=== PATIENT | female | born 1945 | race Caucasian/White ===

== ENCOUNTER 2017-02-25 17:24 | Observation (INO) | payer MEDICARE ==
--- NOTE | 2017-02-25 18:29 | RAD ---
INDICATION: Chest pain COMPARISON: Most recent comparison chest x-rays dated January 21, 2016 TECHNIQUE: Single AP portable view of the chest was obtained. FINDINGS: Image quality is compromised due to the relative inferiority of a portable chest x-ray. There is mild cardiomegaly similar in appearance to the previous chest x-ray. Otherwise the heart and mediastinum exhibit normal size and contour. The lungs are grossly clear. There is no evidence of a large pleural effusion. Visualized bones are normal for the patient's age. IMPRESSION: No radiographic evidence for acute cardiopulmonary abnormality on this portable chest x-ray.
[2017-02-25] MEDS ORDERED: Aspirin Low Dose CHEW TAB* 81 MG PO ONE (19:25)
[2017-02-25] MEDS ORDERED: Metoprolol Tartrate TAB* 25 MG PO ONE (19:28)
[2017-02-25 19:35] LABS: Hematocrit 40 % (35-47); Hemoglobin 12.8 g/dl (12.0-16.0); Mean Corpuscular HGB Conc 32 g/dl (31-36); Mean Corpuscular Hemoglobin 25 pg (27-31); Mean Corpuscular Volume 80 fL (80-97); Mean Platelet Volume 8 um3 (7.4-10.4); Red Blood Count 5.02 10^6/ul (4.0-5.4); Red Cell Distribution Width 16 % (10.5-15); White Blood Count 10.2 10^3/ul (3.5-10.8)
[2017-02-25 19:49] LABS: Albumin 3.9 g/dL (3.2-5.2); BUN/Creatinine Ratio 19.5 (8-20); Calcium 8.9 mg/dL (8.6-10.3); EGFR African American 88.6 (>60); EGFR Non-African American 68.9 (>60); Globulin 3.1 g/dL (2-4); Magnesium 2.2 mg/dL (1.9-2.7); Total Bilirubin 0.3 mg/dL (0.2-1.0)
[2017-02-25 19:50] LABS: Troponin I 0.01 ng/mL (<0.04)
[2017-02-25] MEDS ORDERED: Ondansetron INJ* 2 MG/ML VIAL IV PRN (21:07)
[2017-02-25] MEDS ORDERED: Acetaminophen TAB* 325 MG PO PRN (21:09)
--- NOTE | 2017-02-25 21:22 | ED ---
Elza Johnson Alfonso, scribed for Lazaro Casanova on 02/25/17 at 1943 . HPI Chest Pain - HPI Summary HPI Summary: This patient is a 71 year old F [facility] by male with a chief complaint of sore CP since one month ago. The CC is described as 15 minute intermittent episodes and worsening in severity. The pain radiates to her left shoulder. Pt rates the current pain 0/10 in severity. Symptoms aggravated and alleviated by nothing. Pt reports SOB, and weakness. Pt denies diaphoresis. She denies having had a stress test. - History of Current Complaint Chief Complaint: EDChestPainROMI Time Seen by Provider: 02/25/17 19:12 Hx Obtained From: Patient Onset/Duration: Started Weeks Ago - 1 month, Resolved Timing: Intermittent Initial Severity: Mild Current Severity: Mild Pain Intensity: 0 - Current Pain Scale Used: 0-10 Numeric Chest Pain Radiates: Yes Chest Pain Radiates To:: Shoulder - L Character: Other: - "Sore" Aggravating Factor(s): Nothing Alleviating Factor(s): Nothing Associated Signs and Symptoms: Positive: Other: - Pt reports SOB, and weakness. Pt denies diaphoresis. - Allergy/Home Medications Allergies/Adverse Reactions: Allergies Allergy/AdvReac Type Severity Reaction Status Date / Time Latex Allergy Rash Verified 02/25/17 17:26 Nickel Allergy Rash Verified 02/25/17 17:26 PMH/Surg Hx/FS Hx/Imm Hx Endocrine/Hematology History: Denies: Hx Diabetes, Hx Systemic Lupus Erythematosus, Hx Thyroid Disease Cardiovascular History: Reports: Other Cardiovascular Problems/Disorders - Hx of palpitations Denies: Hx Congestive Heart Failure, Hx Hypertension Respiratory History: Reports: Other Respiratory Problems/Disorders - Hx of pneumonia. Denies: Hx Asthma, Hx Chronic Obstructive Pulmonary Disease (COPD) GI History: Reports: Hx Gall Bladder Disease - s/p choley, Hx Gastroesophageal Reflux Disease, Hx Hiatal Hernia - HAD REPAIR FOR Denies: Hx Ulcer Comment Only: Other GI Disorders - hiatal hernia History: Reports: Other Problems/Disorders - hx of uti Denies: Hx Dialysis, Hx Renal Disease Musculoskeletal History: Reports: Hx Arthritis - HANDS, HANDS, HIPS AND KNEES, Other Musculoskeletal History - sciatica Denies: Hx Rheumatoid Arthritis Sensory History: Reports: Hx Cataracts - BILATERAL, Hx Contacts or Glasses Denies: Hx Hearing Aid Opthamlomology History: Reports: Hx Cataracts - BILATERAL, Hx Contacts or Glasses Psychiatric History: Reports: Hx Anxiety - PRN MEDICATION, Hx Depression - ON MEDICATION FOR - Cancer History Cancer Type, Location and Year: questionable mammograms and lobectomies Hx Chemotherapy: No - Surgical History Surgery Procedure, Year, and Place: partial hysterectomy w/ rectal and bladder prolapse repair; D&C's; 25 yrs ago, cholecystectomy, hernia repair Hx Anesthesia Reactions: Yes - NAUSEA,BUT SURGERY IN 2011- HAD NO PROBLEM Infectious Disease History: No Infectious Disease History: Denies: Hx Hepatitis, Hx Human Immunodeficiency Virus (HIV), Hx Shingles - vaccinated, History Other Infectious Disease, Traveled Outside the [place] in Last 30 Days - Family History Known Family History: Positive: Cardiac Disease - Social History Alcohol Use: Occasionally Substance Use Type: Reports: None Smoking Status (MU): Never Smoked Tobacco Review of Systems Negative: Skin Diaphoresis Positive: Chest Pain Positive: Shortness Of Breath Positive: Weakness All Other Systems Reviewed And Are Negative: Yes Physical Exam Triage Information Reviewed: Yes Vital Signs On Initial Exam: Initial Vitals Temp Pulse Resp BP Pulse Ox 99.2 F 109 18 170/88 98 02/25/17 17:27 02/25/17 17:27 02/25/17 17:27 02/25/17 17:27 02/25/17 17:27 Vital Signs Reviewed: Yes Appearance: Positive: Well-Appearing, No Pain Distress Skin: Positive: Warm, Skin Color Reflects Adequate Perfusion, Dry Head/Face: Positive: Normal Head/Face Inspection Eyes: Positive: EOMI, ADEN ENT: Positive: Normal ENT inspection Neck: Positive: Supple, Nontender Respiratory/Lung Sounds: Positive: Clear to Auscultation, Breath Sounds Present Cardiovascular: Positive: RRR, Pulses are Symmetrical in both Upper and Lower Extremities Abdomen Description: Positive: Nontender, Soft Bowel Sounds: Positive: Present Musculoskeletal: Positive: Normal, Strength/ROM Intact Neurological: Positive: Normal, Sensory/Motor Intact, Alert, Oriented to Person Place, Time - [place] Coma Scale Coma Scale Total: 15 Diagnostics - Vital Signs Vital Signs Temp Pulse Resp BP Pulse Ox 02/25/17 19:28 86 18 154/72 97 02/25/17 19:00 86 20 97 02/25/17 18:00 82 18 95 02/25/17 17:51 87 13 96 07/29/17 17:42 89 02/25/17 17:27 99.2 F 109 18 170/88 98 - Laboratory Lab Results: Lab Results 02/25/17 Range/Units 19:29 WBC 10.2 (3.5-10.8) 10^3/ul RBC 5.02 (4.0-5.4) 10^6/ul Hgb 12.8 (12.0-16.0) g/dl Hct 40 (35-47) % MCV 80 (80-97) fL MCH 25 L (27-31) pg MCHC 32 (31-36) g/dl RDW 16 H (10.5-15) % Plt Count 257 (150-450) 10^3/ul MPV 8 (7.4-10.4) um3 Neut % (Auto) 69.5 (38-83) % Lymph % (Auto) 22.7 L (25-47) % [place] % (Auto) 5.6 (1-9) % Eos % (Auto) 1.2 (0-6) % Baso % (Auto) 1.0 (0-2) % Absolute Neuts (auto) 7.1 (1.5-7.7) 10^3/ul Absolute Lymphs (auto) 2.3 (1.0-4.8) 10^3/ul Absolute Monos (auto) 0.6 (0-0.8) 10^3/ul Absolute Eos (auto) 0.1 (0-0.6) 10^3/ul Absolute Basos (auto) 0.1 (0-0.2) 10^3/ul Absolute Nucleated RBC 0.01 10^3/ul Nucleated RBC % 0.1 Result Diagrams: 02/25/17 19:29 02/25/17 19:29 Lab Statement: Any lab studies that have been ordered have been reviewed, and results considered in the medical decision making process. - Radiology CXR Radiology Interpretation Completed By: Radiologist - No radiographic evidence for acute cardiopulmonary abnormality on this portable chest x-ray. - EKG 0184 Cardiac Rate: NL - BPM 91 EKG Rhythm: Sinus Rhythm ST Segment: Non-Specific EKG Interpretation: Q-waves in inferior leads. Chest Pain Course/Dx - Course Assessment/Plan: 71 year old F presents to the ED with a CC of sore CP since one month ago. The CC is described as 15 minute intermittent episodes and worsening in severity. The pain radiates to her left shoulder. Pt reports SOB, and weakness. Pt denies diaphoresis. CXR reveals No radiographic evidence for acute cardiopulmonary abnormality on this portable chest x-ray. An EKG reveals NSR. We discussed patient care with Dr. Abbott (Hospitalist) who agrees to see the patient in the ED. Consulted Dr. Abbott at 2107 who agrees to admit. Patient will be admitted with follow up from Dr. Abbott. Pt is agreeable with this plan. - Diagnoses Provider Diagnoses: Unstable angina - Provider Notifications Discussed Care Of Patient With: Jeff Abbott Time Discussed With Above Provider: 20:34 Instructed by Provider To: Other - Consulted Dr. Abbott (Hospitalist) who agrees to see the patient in the ED. Consulted Dr. Abbott at 2107 who agrees to admit. Discharge - Discharge Plan Condition: Stable Disposition: ADMITTED TO [facility] Referrals: Lori Dawson MD [Primary Care Provider] - The documentation as recorded by the Elza savage Alfonso accurately reflects the service I personally performed and the decisions made by Edilberto beltre Emmanuel.
[2017-02-25] MEDS: Heparin VIAL(*) 5000 UNITS/ML VIAL (FIVE THOUSAND) SUBCUT SCH (23:05)
--- NOTE | 2017-02-26 04:40 | HP ---
CC: Dr. Dawson * HISTORY AND PHYSICAL: DATE OF ADMISSION: 02/25/17 PRIMARY CARE PROVIDER: Dr. Dawson. ATTENDING PHYSICIAN WHILE IN THE HOSPITAL: Jeff Abbott MD * (report dictated by Kalpesh Tsang NP). CHIEF COMPLAINT: Chest pain. HISTORY OF PRESENT ILLNESS: Ms. Damon is a 71-year-old female patient, she has a history of depression and anxiety, pancreatitis, history of labyrinthitis , diverticulitis, prediabetic, and chronic bronchitis. She comes into the ER today stating that over the last several weeks she has had intermittent left- sided chest discomfort that she describes as discomfort, she states it does not feel like a pressure, states it just feels like a dull ache, it comes and goes, lasted seconds. However, the last night the pain was in the left side of her chest, it did go into her arms up she states and it did not radiate down the arm , but she did feel short of breath. She states the pain does not come with exertion. It does not really correlate when it comes, she states. She states that there is no association with food and there has been no recent trips or travel. No calf pain or leg pain and there has been no associated nausea with the discomfort or any associated diaphoresis. She was concerned though, because the episodes may last about 15 minutes. She had more episodes today when she woke up that were seconds. She went and saw her primary. Her primary evaluated her and set her up for a stress test; however, she was told if the symptoms came back that she should be evaluated probably more sooner in the ER. After having the primary's appointment today, the patient did develop chest discomfort again and she came into the ER, was evaluated. She denies any recent chills or fevers or cough. She does state that she has chronic runny nose and she states that she has a chronic cough from postnasal drip. However, because of the recurrent chest pain, there was concern for acute coronary syndrome by the ER and we were asked to evaluate for admission. PAST MEDICAL HISTORY: Significant for: 1. Depression. 2. Anxiety. 3. Pancreatitis. 4. Diverticulitis. 5. Labyrinthitis. 6. Prediabetes. 7. Chronic bronchitis. PAST SURGICAL HISTORY: 1. She has had a breast biopsy. 2. Lumpectomy. 3. Bladder and rectal prolapse repairs. 4. Hysterectomy. 5. Laparoscopic cholecystectomy. 6. Liberty fundoplication. HOME MEDICATIONS: Include: 1. Mobic 7.5 mg p.o. b.i.d. 2. Calcium with vitamin D 1 tablet p.o. b.i.d. 3. Ferrous sulfate 50 mg p.o. daily. ALLERGIES TO MEDICATIONS: Include LATEX, NICKEL. FAMILY HISTORY: Mother had a CHF. Mother had COPD. SOCIAL HISTORY: She does not smoke, does not drink. Surrogate decision maker is her friend. REVIEW OF SYSTEMS: There is no documented fever. Denied having any significant weight change. There was no double vision. There is no ear discharge. No rhinorrhea. No sore throat. No thyroid enlargement. Denies having any chest discomfort. Currently, she denies having any shortness of breath, denies having any abdominal discomfort. There is no nausea now, no vomiting, no dysuria or frequency. No seizure. No loss of consciousness. No pruritus, no skin ulceration. Review of 14 systems completed, all others negative. PHYSICAL EXAMINATION GENERAL: At this time, Ms. Damon is a 71-year-old female patient. She appears to be well nourished, well developed. She is sitting in the ER stretcher. VITAL SIGNS: Reveals blood pressure 142/68, pulse 80, respirations 22, O2 saturation 95%, temperature 99.2. HEENT: Head is atraumatic and normocephalic. Eyes: EOMs are intact. Sclerae were anicteric and not pale. Throat: Oral mucosa appears to be moist, no oropharyngeal erythema. NECK: Supple. LUNGS: Clear to auscultation bilaterally. No wheezes, rales, or rhonchi. HEART: Sounds S1 and S2. Regular rate and rhythm. No murmurs, rubs or gallops. ABDOMEN: Soft, flat, and nontender. Bowel sounds present. EXTREMITIES: Pulses were 2+ throughout. She had no peripheral edema. She had no calf tenderness or swelling. She had 5/5 strength. NEUROLOGIC: She is awake. She is awake, alert, oriented x3. Tongue is midline. Project Manager Senior are equal. No gross focal deficits. The skin is grossly intact. LABORATORY DATA/DIAGNOSTIC STUDIES: Labs today revealed WBC of 10.2, RBC of 5.02, hemoglobin 12.8, hematocrit of 40, platelet count of 257,000. The INR was 0.84, PTT was 30.8. Sodium 138, potassium 4, chloride 106, bicarbonate 26, BUN 16, creatinine 0.82, glucose 114, calcium 8.9, total bilirubin 0.3, magnesium 2.2, ALT 13, AST 15, alkaline phosphatase 79, CK 67, troponin 0.01, BNP of 32, albumin 3.9. She did have a chest x-ray obtained today, which revealed no radiographic evidence of acute cardiopulmonary abnormality on the portable chest. She did have an EKG obtained today, which showed a normal sinus rhythm. She did have a rate of 91. There was subtle elevation in V3, but she has had this previously. She had no ST depressions or new elevations. No T wave inversions. It was reviewed with the previous EKG, it appears to be similar. Old medical records reviewed. ASSESSMENT AND PLAN: Ms. Damon is a 71-year-old female patient coming into the ER with complaints today of chest pain. She will be admitted under observation status for: 1. Chest pain. Again, the patient does have the risk factors. She is prediabetic. She was exposed to secondhand smoke, but she never smoked herself , but her story being that the pain has been going on for 3 weeks intermittently , certainly this could be acute coronary syndrome; however, it is nonexertional and the only associated symptom she does have is shortness of breath. However, I do think it is warranted to go ahead and cycle her troponins, place her on telemetry. We will start her on aspirin, in addition to this we will go ahead and get a stress test on Monday and we will continue to follow. 2. Depression/anxiety. Continue supportive care. 3. History of pancreatitis and diverticulitis, not an active issue. She is to follow with primary. 4. Labyrinthitis, not an active issue. Follow with primary. 5. Prediabetes, we will check A1c. 6. Chronic bronchitis, not an active issue currently. She will follow with primary. 7. DVT prophylaxis. She will be placed on heparin subcu. 8. Code status: Full code. 9. Fluids, electrolytes, nutrition. She can have a heart-healthy diet and should be on n.p.o. Monday night for stress test on Monday morning. TIME SPENT: Time spent on the admission was 60 minutes, greater than half the time was spent [id number] with the patient obtaining my history and physical, other half time was spent going over the plan of care with the patient and implementing plan of care. I did discuss the plan of care with my attending, Dr. Abbott, who is in agreement. KALPESH TSANG NP [id number]/[facility] #: [id number] JOSUÉ
[2017-02-26] MEDS: Heparin VIAL(*) 5000 UNITS/ML VIAL (FIVE THOUSAND) SUBCUT SCH ×3 (05:13→21:45)
[2017-02-26 05:21] LABS: Hematocrit 37 % (35-47); Hemoglobin 11.6 g/dl (12.0-16.0); Mean Corpuscular HGB Conc 32 g/dl (31-36); Mean Corpuscular Hemoglobin 26 pg (27-31); Mean Corpuscular Volume 80 fL (80-97); Mean Platelet Volume 8 um3 (7.4-10.4); Red Blood Count 4.56 10^6/ul (4.0-5.4); Red Cell Distribution Width 16 % (10.5-15); White Blood Count 8.3 10^3/ul (3.5-10.8)
[2017-02-26 05:32] LABS: BUN/Creatinine Ratio 24.1 (8-20); Calcium 8.6 mg/dL (8.6-10.3); EGFR African American 92.5 (>60); EGFR Non-African American 71.9 (>60); HDL Cholesterol 38.9 mg/dL; Potassium 3.9 mmol/L (3.5-5.0)
[2017-02-26] MEDS: Aspirin EC Low Dose* 81 MG TAB.EC PO SCH (07:31)
--- NOTE | 2017-02-26 14:43 | PN ---
Subjective Date of Service: 02/26/17 Interval History: Pt is feeling well. She is having the hardest time with not having coffee. She has not had any chest discomfort in the hospital. No SOB. She states she has not walked much since being here. Family History: Unchanged from Admission Social History: Unchanged from Admission Past Medical History: Unchanged from Admission Objective Active Medications: Acetaminophen (Tylenol Tab*) 650 mg PO Q6H PRN PRN Reason: FEVER/PAIN Aspirin (Aspirin Ec Low Dose*) 81 mg PO DAILY [facility] Last Admin: 02/26/17 07:31 Dose: 81 mg Heparin Sodium (Porcine) (Heparin Vial(*)) 5,000 units SUBCUT Q8HR [facility] Last Admin: 02/26/17 13:05 Dose: 5,000 units Ondansetron HCl (Zofran Inj*) 4 mg IV Q6H PRN PRN Reason: NAUSEA Vital Signs 02/25/17 02/25/17 02/25/17 21:36 22:05 22:18 Temperature 98.5 F Pulse Rate 75 73 Respiratory 23 17 17 Rate Blood Pressure 145/64 146/74 (mmHg) O2 Sat by Pulse 95 99 Oximetry 02/25/17 02/25/17 02/25/17 22:25 23:00 23:27 Temperature 98.2 F Pulse Rate 69 Respiratory 49 16 16 Rate Blood Pressure 138/60 (mmHg) O2 Sat by Pulse 98 Oximetry 02/26/17 02/26/17 02/26/17 00:00 01:00 02:02 Temperature Pulse Rate Respiratory 18 17 52 Rate Blood Pressure (mmHg) O2 Sat by Pulse Oximetry 02/26/17 02/26/17 02/26/17 03:00 03:44 04:00 Temperature 97.5 F Pulse Rate 65 Respiratory 14 15 17 Rate Blood Pressure 120/56 (mmHg) O2 Sat by Pulse 97 Oximetry 02/26/17 02/26/17 02/26/17 05:00 06:00 06:27 Temperature Pulse Rate Respiratory 15 17 17 Rate Blood Pressure (mmHg) O2 Sat by Pulse Oximetry 02/26/17 02/26/17 02/26/17 07:00 07:21 08:00 Temperature 98.0 F Pulse Rate 70 Respiratory 16 18 18 Rate Blood Pressure 130/67 (mmHg) O2 Sat by Pulse 96 Oximetry 02/26/17 02/26/17 02/26/17 08:14 09:00 10:00 Temperature Pulse Rate Respiratory 19 12 Rate Blood Pressure (mmHg) O2 Sat by Pulse 96 Oximetry 02/26/17 02/26/17 02/26/17 11:00 11:16 12:00 Temperature 97.2 F Pulse Rate 70 Respiratory 6 20 11 Rate Blood Pressure 146/70 (mmHg) O2 Sat by Pulse 98 Oximetry Oxygen Devices in Use Now: None Appearance: Elderly female sitting up in bed, NAD Eyes: No Scleral Icterus Ears/Nose/Mouth/Throat: Mucous Membranes Moist Respiratory: Symmetrical Chest Expansion and Respiratory Effort, Clear to Auscultation Cardiovascular: NL Sounds; No Murmurs; No JVD, RRR, No Edema Abdominal: NL Sounds; No Tenderness; No Distention Extremities: No Clubbing, Cyanosis Skin: No Rash or Ulcers, No Nodules or Sclerosis Neurological: Alert and Oriented x 3 Result Diagrams: 02/26/17 05:03 02/26/17 05:03 Additional Lab and Data: Lab Results 02/25/17 Range/Units 19:29 WBC 10.2 (3.5-10.8) 10^3/ul RBC 5.02 (4.0-5.4) 10^6/ul Hgb 12.8 (12.0-16.0) g/dl Hct 40 (35-47) % MCV 80 (80-97) fL MCH 25 L (27-31) pg MCHC 32 (31-36) g/dl RDW 16 H (10.5-15) % Plt Count 257 (150-450) 10^3/ul MPV 8 (7.4-10.4) um3 Neut % (Auto) 69.5 (38-83) % Lymph % (Auto) 22.7 L (25-47) % [place] % (Auto) 5.6 (1-9) % Eos % (Auto) 1.2 (0-6) % Baso % (Auto) 1.0 (0-2) % Absolute Neuts (auto) 7.1 (1.5-7.7) 10^3/ul Absolute Lymphs (auto) 2.3 (1.0-4.8) 10^3/ul Absolute Monos (auto) 0.6 (0-0.8) 10^3/ul Absolute Eos (auto) 0.1 (0-0.6) 10^3/ul Absolute Basos (auto) 0.1 (0-0.2) 10^3/ul Absolute Nucleated RBC 0.01 10^3/ul Nucleated RBC % 0.1 Assess/Plan/Problems-Billing Ms Damon is a 71 yo F who has a h/o pre-diabetes and obesity who presented to the ER with c/o intermittent chest discomfort over the last 3 weeks. - Patient Problems (1) Chest pain Current Visit: Yes Status: Acute Code(s): R07.9 - CHEST PAIN, UNSPECIFIED SNOMED Code(s): 40826797 Comment: The patient has ruled out for OR. Plan will be for chemical nuclear stress test tomorrow. She will alert nursing to any further episodes of CP. Lipid profile is favorable. (2) HTN (hypertension) Current Visit: Yes Status: Acute Code(s): I10 - ESSENTIAL (PRIMARY) HYPERTENSION SNOMED Code(s): 67441002 Comment: She does not have a h/o HTN however her BP has not been in the optimal range. Will start amlodipine 5mg daily. Monitor BP. (3) Pre-diabetes Current Visit: Yes Status: Acute Code(s): R73.03 - PREDIABETES SNOMED Code (s): 203321466 Comment: Will get nutrition consult. (4) DVT prophylaxis Current Visit: Yes Status: Acute Code(s): OMP1694 - SNOMED Code(s): 986557854 Comment: SQ heparin (5) Full code status Current Visit: Yes Status: Acute Code(s): Z78.9 - OTHER SPECIFIED HEALTH STATUS SNOMED Code(s): 433806155
[2017-02-26] MEDS: amLODIPine TAB* 5 MG PO SCH (14:56)
[2017-02-27] MEDS: Heparin VIAL(*) 5000 UNITS/ML VIAL (FIVE THOUSAND) SUBCUT SCH (05:51)
[2017-02-27] MEDS: amLODIPine TAB* 5 MG PO SCH (09:35)
[2017-02-27] MEDS: Aspirin EC Low Dose* 81 MG TAB.EC PO SCH (09:35)
--- NOTE | 2017-02-27 10:10 | RAD ---
INDICATION: Chest pain COMPARISON: Chest x-ray dated February 25, 2017 TECHNIQUE: SPECT imaging was performed. Rest images were acquired following the intravenous injection of 10.83 millicuries of technetium 99m tetrofosmin on February 27, 2017. At 0855 hours stress images were acquired following the intravenous administration of 25 millicuries of technetium 99m tetrofosmin. A peak heart rate was achieved of 142 bpm. FINDINGS: There are no defects of the stress-induced or fixed nature. The cardiac chamber size is normal. There are no wall motion abnormalities. The ejection fraction is calculated at 71% during stress. IMPRESSION: No scintigraphic evidence of ischemia or infarction. ASSESSMENT: Low risk
[2017-02-27 11:43] VITALS: BP 149/73
--- NOTE | 2017-02-28 14:59 | DS ---
CC: Dr. Dawson* DISCHARGE SUMMARY: DATE OF ADMISSION: 02/25/17 DATE OF DISCHARGE: 02/27/17 PRIMARY CARE PROVIDER: Dr. Dawson. PRINCIPAL DIAGNOSIS: Noncardiac chest pain. SECONDARY DIAGNOSES: 1. Prediabetes. 2. Hypertension. 3. Anxiety/depression. DISCHARGE MEDICATIONS: 1. Amlodipine 5 mg p.o. daily (new). 2. Calcium plus D 1 tab p.o. b.i.d. 3. Meloxicam 7.5 mg p.o. b.i.d. 4. Ferrous sulfate 50 mg p.o. daily. HOSPITAL COURSE: Ms. Damon is a 71-year-old female, who has a history of prediabetes and obesity, who presented to the emergency room on 02/25/17 with complaints of intermittent chest discomfort that has been going on over the last 3 weeks. The patient had been set up for an outpatient stress test by her primary care provider; however, as she had another episode, she presented to the emergency room for evaluation and was admitted to rule out an acute coronary syndrome. The patient did rule out for an acute coronary syndrome. On 02/27/17, she underwent a chemical nuclear stress test that did not reveal any fixed or reversible ischemic changes. The patient was felt to be stable for discharge home from the standpoint. The cause of her intermittent chest pain , however, is unclear. During the course of the hospitalization, it became clear that the patient was moderately hypertensive. She was started on amlodipine 5 mg p.o. daily with good response. The patient has been recommended to continue on this medication. In addition, the patient's hemoglobin A1c was obtained and found to be mildly elevated at 6.3%. The patient has been instructed to aggressively work on diet and exercise over the next 6 months and if she fails to improve her A1c, she should consider being started on metformin. At this point, the patient is stable for discharge home. PHYSICAL EXAMINATION: On the day of discharge, the patient is awake, alert, and oriented, sitting up in the bed, in no acute distress. Vital signs are stable. Cardiac exam reveals a normal S1, S2. Regular rate and rhythm. No lower extremity edema was noted. Her pulmonary exam revealed clear lungs bilaterally. The abdominal exam revealed normal bowel sounds with an abdomen that is obese, soft, nontender, and nondistended. FOLLOWUP CONCERNS: The patient is being discharged home today, 02/27/17. She is to follow up with Dr. Dawson in the next 4 to 7 days. She has been given the number for [facility] so that she can meet with the caustic pump operator and discuss healthy lifestyle to improve her hemoglobin A1c. ACTIVITY LEVEL: As tolerated. DIET: Low fat. CONDITION ON DISCHARGE: Stable. TIME SPENT: Twenty-five was minutes spent discharging the patient. [id number]/[facility] #: [id number] JOSUÉ
== END 2017-02-27 12:41 | disposition home or self-care (01) ==
LOC: ED 17:24 → MEDTELE 21:04
PROVIDERS: ADMIT Internal Medicine; ATTEND Hospitalist
DX: R07.89 Other chest pain (principal); R73.03 Prediabetes; I10 Essential (primary) hypertension; F41.9 Anxiety disorder, unspecified; F32.9 Major depressive disorder, single episode, unspecified; R06.02 Shortness of breath; I51.7 Cardiomegaly; R53.1 Weakness; Z79.899 Other long term (current) drug therapy
CPT/HCPCS: 36415; 71010; 78452; 80048; 80053; 80061; 82550; 83036; 83735; 83880; 84484; 85025; 85379; 85610; 85730; 93005; 93017; 94760; 96372; 99283; A9270-GY; A9502; G0378; J1644

== ENCOUNTER 2018-01-04 10:08 | Emergency (ER) | payer MEDICARE ==
[2018-01-04 10:41] VITALS: BP 0/0
--- OUTSIDE RECORDS SUMMARY | 2018-01-04 11:25 | XMS REPORT ---
:1945 External Reference #:[id number] Author Organization [employer] Address [address] [place] [address] Phone [phone] Care Team Providers Name Role Phone Lori Dawson M.D. Primary Care Physician Unavailable Payers Type Date Identification Numbers Payment Provider Subscriber Medicare Primary Policy Number: [id number] Medicare - [place] Selin Damon PayID: [id number] [address] [place] [address] Medigap Part B Effective: 2013 Policy Number: [facility] Selin Damon [id number] PayID: [id number] [address] [place] [address] Problems Date Description Provider Status Onset: Type 2 diabetes mellitus Active Onset: Essential hypertension Active Onset: Arthritis Active Onset: 12/18/2017 Insomnia hCe Clayton O.D. Active Onset: 12/18/2017 Herpes zoster without complication Che Clayton O.D. Active Onset: 12/18/2017 Tear film insufficiency Che Clayton O.D. 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 ETOH Use Rarely consumes alcohol Smoking Patient has never smoked Daily Caffeine Consumes on average 2 cups of regular coffee per day Daily Caffeine Consumes on average 8oz of iced tea per day Allergies, Adverse Reactions, Alerts Date Description Reaction Status Severity Comments 12/18/2017 NKDA active Medications Medication Date Status Form Strength Qnty SIG Indications Ordering Provider Valacyclovir Active Tablets 1gm Unknown HCL 000 Amlodipine 00/00/0 Active Tablets 5mg Take One Unknown Besylate 000 Tablet By Mouth Every Day Meloxicam Active Tablets 7.5mg Unknown 000 Metformin HCL Active Tablets ER 500mg Take One Unknown ER 000 24HR Tablet By Mouth Every Day Probiotic Active Capsules Unknown 000 Caltrate 600 Active Tablets 1500(600Ca Unknown 000 ) mg Results Description No Information Procedures Date CPT Code Description Status 08/28/2013 29590 Extracapsular Cataract Extraction W/Intraocular Lens Completed 08/14/2013 91880 Extracapsular Cataract Extraction W/Intraocular Lens Completed 08/06/2013 00375 Ophthalmic Biometry Completed 08/06/2013 24767 Ophthalmic Biometry Completed 07/19/2013 31852 Est Patient Comprehensive Exam Completed 07/12/2012 23725 Determination Of Refractive State Completed 07/12/2012 58763 Est Patient Comprehensive Exam Completed 07/12/2011 87234 Determination Of Refractive State Completed 07/12/2011 28762 New Patient Comprehensive Exam Completed Encounters Type Date Location Provider CPT E/M Dx Office Visit 08/06/2013 12:45p Chacorta Goff MD, [place], [address] 366.16 Jacob 366.16 Plan of Care 12/18/2017 - Che Clayton O.D.B02.9 Zoster without complicationsFollow up :prnH04.123 Dry eye syndrome of bilateral lacrimal glandsComments:Smoking can increase the risk of developing or worsening any eye related disease, as well as affect your overall health. If you are a smoker, we strongly recommend that you quit.If you are not a smoker, we strongly recommend that you do not start. use a hot compress for 5-10 minutes 1 x dayuse artificial tears 3-4 x day both eyes as needed
--- NOTE | 2018-01-04 14:35 | ED ---
Ernie Johnson Stephanie, scribed for Rickey Garcia MD on 01/04/18 at 1038 . Skin Complaint - HPI Summary HPI Summary: The pt is a 72 y/o F presenting to the ED with c/o rash that began on 01/03/18. Symptoms include decreased energy. The pt reports hx of shingles about 1 month ago. - History of Current Complaint Chief Complaint: EDRashSkinAbscess Time Seen by Provider: 01/04/18 10:23 Stated Complaint: RASH Hx Obtained From: Patient Onset/Duration: Started Days Ago - 1, Still Present Timing: Constant Current Severity: None Pain Intensity: 0 Pain Scale Used: 0-10 Numeric Skin Location: Discrete, Arm - R forearm Aggravating Symptom(s): Nothing Alleviating Symptom(s): Nothing Associated Signs & Symptoms: Rash - Additional Pertinent History Primary Care Physician: [id number] - Allergy/Home Medications Allergies/Adverse Reactions: Allergies Allergy/AdvReac Type Severity Reaction Status Date / Time MS Latex [Latex] Allergy Rash Verified 01/04/18 10:20 MS Nickel [Nickel] Allergy Rash Verified 01/04/18 10:20 Home Medications: Home Medications Calcium Carbonate/Vitamin D3 [Caltrate 600 + D Soft Chew Tab] 1 chw PO DAILY 02/14 [History Confirmed 01/04/18] Meloxicam(NF) [Mobic(NF)] 7.5 mg PO BID PRN 01/04/18 [History Confirmed 01/04/18 ] Metformin ER (NF) 500 mg PO DAILY 01/04/18 [History Confirmed 01/04/18] amLODIPine TAB* [Norvasc 5 mg TAB*] 5 mg PO DAILY 01/04/18 [History Confirmed ] PMH/Surg Hx/FS Hx/Imm Hx Endocrine/Hematology History: Reports: Hx Diabetes - pre diabetes but not officially diagnosed Denies: Hx Systemic Lupus Erythematosus, Hx Thyroid Disease Cardiovascular History: Reports: Hx Angina - Recent and new, Other Cardiovascular Problems/Disorders - Hx of palpitations Denies: Hx Congestive Heart Failure, Hx Hypertension Respiratory History: Reports: Hx Chronic Bronchitis, Other Respiratory Problems/ Disorders - Hx of pneumonia. Denies: Hx Asthma, Hx Chronic Obstructive Pulmonary Disease (COPD) GI History: Reports: Hx Diverticulosis - diverticulitis, Hx Gall Bladder Disease - s/p choley, Hx Gastroesophageal Reflux Disease, Hx Hiatal Hernia - HAD REPAIR FOR Denies: Hx Ulcer Comment Only: Other GI Disorders - hiatal hernia History: Reports: Other Problems/Disorders - hx of uti Denies: Hx Dialysis, Hx Renal Disease Musculoskeletal History: Reports: Hx Arthritis - HANDS, HANDS, HIPS AND KNEES, Other Musculoskeletal History - sciatica Denies: Hx Rheumatoid Arthritis Sensory History: Reports: Hx Cataracts, Hx Contacts or Glasses Denies: Hx Hearing Aid Opthamlomology History: Reports: Hx Cataracts, Hx Contacts or Glasses Neurological History: Reports: Other Neuro Impairments/Disorders - Sciatica nerve pain Psychiatric History: Reports: Hx Anxiety - PRN MEDICATION, Hx Depression - ON MEDICATION FOR - Cancer History Cancer Type, Location and Year: questionable mammograms and lobectomies Hx Chemotherapy: No - Surgical History Surgery Procedure, Year, and Place: partial hysterectomy w/ rectal and bladder prolapse repair; D&C's; 25 yrs ago, cholecystectomy, hernia repair, cataract, [place] fundiplication Hx Anesthesia Reactions: Yes - NAUSEA,BUT SURGERY IN 2011- HAD NO PROBLEM Infectious Disease History: No Infectious Disease History: Denies: Hx Hepatitis, Hx Human Immunodeficiency Virus (HIV), Hx of Known/ Suspected MRSA, Hx Shingles - vaccinated, History Other Infectious Disease, Traveled Outside the [place] in Last 30 Days - Family History Known Family History: Positive: Cardiac Disease - Social History Occupation: Retired Lives: With Family Alcohol Use: Weekly Alcohol Amount: 2 drinks a week Hx Substance Use: No Substance Use Type: Reports: None Hx Tobacco Use: No Smoking Status (MU): Never Smoked Tobacco Have You Smoked in the Last Year: No Review of Systems Positive: Other - decreased energy. Negative: Fever Positive: Rash Negative: Slurred Speech All Other Systems Reviewed And Are Negative: Yes Physical Exam - Summary Physical Exam Summary: Appearance: Well appearing, no pain distress Skin: warm, dry,1 cm * 0.5 cm area on R dorsal forearm that is purpuric but non- raised and non-blanchable, no vesicular regions. Slight abrasion down the center of rash and slightly proximal to the rash. Head/face: normal Eyes: EOMI, ADEN ENT: normal Neck: supple, non-tender Respiratory: CTA, breath sounds present Cardiovascular: RRR, pulses symmetrical Abdomen: non-tender, soft Bowel Sounds: present Musculoskeletal: normal, strength/ROM intact Neuro: normal, sensory motor intact, A&Ox3 Triage Information Reviewed: Yes Vital Signs On Initial Exam: Initial Vitals Temp Pulse Resp BP Pulse Ox 98.3 F 101 20 173/87 99 01/04/18 10:14 01/04/18 10:14 01/04/18 10:14 01/04/18 10:14 01/04/18 10:14 Vital Signs Reviewed: Yes Diagnostics - Vital Signs Vital Signs Temp Pulse Resp BP Pulse Ox 01/04/18 10:14 98.3 F 101 20 173/87 99 - Laboratory Lab Statement: Any lab studies that have been ordered have been reviewed, and results considered in the medical decision making process. Course/Dx - Course Course Of Treatment: Patient with small area of purpura/ecchymosis that does not look vesicular or leg zoster at all. It appears she has maybe a small abrasion and had some dermal bleeding/bruising. Follow-up with primary care physician. - Differential Diagnoses - Skin Complaint Differential Diagnoses: Other - Dermatitis, zoster, injury - Diagnoses Provider Diagnoses: Dermatitis Discharge - Sign-Out/Discharge Documenting (check all that apply): Discharge/Admit/Transfer - Discharge - Discharge Plan Condition: Good Disposition: HOME Patient Education Materials: Dermatitis (ED) Referrals: Lori Dawson MD [Primary Care Provider] - 2 Days Additional Instructions: Return if Worse, new symptoms or other concerns. Follow-up with your doctor. - Billing Disposition and Condition Condition: GOOD Disposition: Home The documentation as recorded by the Ernie savage Stephanie accurately reflects the service I personally performed and the decisions made by me, Rickey Garcia MD.
== END 2018-01-04 10:39 | disposition home or self-care (01) ==
LOC: ED 10:08
DX: L30.9 Dermatitis, unspecified (principal); R73.03 Prediabetes; M19.042 Primary osteoarthritis, left hand; M19.041 Primary osteoarthritis, right hand; M17.0 Bilateral primary osteoarthritis of knee; Z86.19 Personal history of other infectious and parasitic diseases; Z79.84 Long term (current) use of oral hypoglycemic drugs; Z79.899 Other long term (current) drug therapy
CPT/HCPCS: 99282

== ENCOUNTER 2018-10-26 07:04 | Emergency (ER) | payer MEDICARE ==
--- OUTSIDE RECORDS SUMMARY | 2018-10-26 07:12 | XMS REPORT | Continuity of Care Document ---
:1945 External Reference #:[id number] Author Name Natalie York MD Address [address] [place] [address] Care Team Providers Name Role Phone Lori Dawson MD. Primary Care Physician Unavailable Payers Date Identification Numbers Payment Provider Subscriber Policy Number: [id number] [employer] [place] Selin Damon PayID: [id number] [address] [address] [place] [address] Policy Number: [id number] [facility] Selin Damon PayID: [id number] [address] [place] [address] Advance Directives Description No Information Available Problems Description No Information Family History Date Family Member(s) Observation Comments Father due to Emphysema () Mother due to Congestive Heart Failure () Children 2 First Son A&W First Daughter A&W Social History Type Date Description Comments Sex Unknown Education Highest level completed, 2 years of college Marital Status Legal Status: Lives With Male Partner Occupation Retired ETOH Use Currently consumes alcohol approx 1 drink qd Recreational Drug Use Denies Drug Use Exercise Type/Frequency Exercises regularly Seat Belt/Car Seat Always uses seat belt Currently Active Patient is currently sexually active Allergies, Adverse Reactions, Alerts Description No Known Drug Allergies Medications Medication Date Status Form Strength Qnty SIG Indications Ordering Provider Calcium + D Active Unknown Metformin HCL Active Unknown Meloxicam Active Unknown Unidentified BP Med Active Unknown Medications Administered in Office Medication Date Status Form Strength Qnty SIG Indications Ordering Provider PT SCRN Tbco Administered Injection Jaylen, Id as Non User 019 MD Natalie Immunizations Description No Information Available Vital Signs Date Vital Result Comment 10/17/2018 3:29pm BP Systolic 126 mmHg BP Diastolic 80 mmHg Height 68 inches 5'8" Weight 216.00 lb BMI (Body Mass Index) 32.8 kg/m2 Last Menstrual Period [id number] Parity 2 Results Description No Information Available Procedures Date Code Description Status 10/17/2018 23583 Fitting & Insertion Of Pessary/Intravaginal Support Completed Device 09/28/2017 [id number] Mammogram Completed 07/31/2016 71978027 Colonoscopy Completed Encounters Type Date Location Provider Dx Diagnosis Office Visit 10/17/2018 [facility] Natalie York, 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 Try to remove the pessary yourself. Call with any concerns of difficulty with bowel movement, urination, pain or if you believe the pessary has changed position.
[2018-10-26 07:22] VITALS: BP 162/74
--- NOTE | 2018-10-26 07:42 | UC ---
Ear Complaint HPI - HPI Summary HPI Summary: ONSET LAST NIGHT OF LEFT EAR PAIN. NO CHANGE IN HEARING OR DRAINAGE FROM THE EAR. SHE DOES NOT USE Q-TIPS OR DROPS IN HER EARS ROUTINELY. HAS CHRONIC SINUS SYMPTOMS AND STATES SHE HAS BEEN EXPERIENCING SOME CONGESTION AND DRAINAGE BUT NOTHING OUT OF THE ORDINARY. NO FEVER, NO NAUSEA/VOMITING. - History of Current Complaint Chief Complaint: UCEar Stated Complaint: EAR PAIN Time Seen by Provider: 10/26/18 07:12 Hx Obtained From: Patient Onset/Duration: Gradual Onset, Lasting Hours, Still Present Severity Initially: Mild Severity Currently: Mild Pain Intensity: 0 Pain Scale Used: 0-10 Numeric Aggravating Factors: Nothing Alleviating Factors: Nothing Associated Signs/Symptoms: Positive: URI Symptoms. Negative: Discharge, Hearing Loss - Allergies/Home Medications Allergies/Adverse Reactions: Allergies Allergy/AdvReac Type Severity Reaction Status Date / Time latex Allergy Rash Verified 10/26/18 07:16 nickel Allergy Rash Verified 10/26/18 07:16 PMH/Surg Hx/FS Hx/Imm Hx Endocrine History: Diabetes Cardiovascular History: Hypertension - Surgical History Surgical History: Yes Surgery Procedure, Year, and Place: partial hysterectomy w/ rectal and bladder prolapse repair; D&C's; 25 yrs ago, cholecystectomy, hernia repair, cataract, [place] fundiplication, surgery d/t acute pancreatitis - Family History Known Family History: Positive: Cardiac Disease - Social History Alcohol Use: Occasionally Alcohol Amount: 2 drinks a week Substance Use Type: None Smoking Status (MU): Never Smoked Tobacco Have You Smoked in the Last Year: No - Immunization History Most Recent Influenza Vaccination: fall 2012 Review of Systems All Other Systems Reviewed And Are Negative: Yes Constitutional: Positive: Negative ENT: Positive: Ear Ache, Sinus Congestion Respiratory: Positive: Cough Cardiovascular: Positive: Negative Gastrointestinal: Positive: Negative Physical Exam Triage Information Reviewed: Yes Appearance: Well-Appearing, No Pain Distress, Well-Nourished Vital Signs: Initial Vital Signs Temp 99.3 F 10/26/18 07:13 Pulse 82 10/26/18 07:13 Resp 16 10/26/18 07:13 BP 162/74 10/26/18 07:13 Pulse Ox 96 10/26/18 07:13 Vital Signs Reviewed: Yes Eyes: Positive: Conjunctiva Clear ENT: Positive: Hearing grossly normal, Pharynx normal, TMs normal Neck: Positive: Supple, Nontender, No Lymphadenopathy Respiratory Exam: Normal Cardiovascular Exam: Normal Abdomen Description: Positive: Soft Musculoskeletal: Positive: No Edema Neurological: Positive: Alert Psychological: Positive: Age Appropriate Behavior Skin: Negative: Rashes Ear Complaint Course/Dx - Course Course Of Treatment: NO INFECTION ON EXAM. F/U PCP - Differential Dx/Diagnosis Provider Diagnosis: Left ear pain Discharge - Sign-Out/Discharge Documenting (check all that apply): Patient Departure All imaging exams completed and their final reports reviewed: No Studies - Discharge Plan Condition: Stable Disposition: HOME Patient Education Materials: Earache (ED) Referrals: Lori Dawson MD [Primary Care Provider] - If Needed Additional Instructions: NO EVIDENCE OF EAR INFECTION OR WAX BUILDUP ON EXAM TODAY. KEEP YOUR FOLLOW-UP APPT WITH YOUR PCP NEXT WEEK FOR RE-EVALUATION. EAR PAIN, NON-SPECIFIC There are many causes of ear pain in adults. Pain that's felt in the ear can actually be coming from somewhere nearby. This is called "referred pain." Problems in the teeth, throat, or jaw joint (TMJ) often cause ear pain. Sometimes the physical exam or medical history suggests a treatable cause. If not, we may wait for the pain to go away. New symptoms may offer a clue to the cause of the pain. Report any changes to your care provider. These are some conditions that can cause ear pain, but may not be obvious from physical examination: Eardrum injury Pressure changes (barotrauma) due to swimming or shock waves Mild trauma such as Q-tip injury or finger-picking the outer ear Mild outer ear infection (swimmer's ear) Low-grade or chronic middle ear infection Mastoiditis (infection in the bone behind the ear) TMJ syndrome or arthritis of the jaw Pressure from hard earwax Tooth infection Infected tonsil Sinus infection Nerve disease such as Enriquez's Palsy Follow your care provider's treatment recommendations. Let the ear rest. Don't insert cotton swabs, dig at the ear with your finger, or force your ears to "pop." If you're not improving after a few days, or if new symptoms arise, see the doctor. Watch for: Decreased hearing Spreading pain or headache Drainage or bleeding from the ear Fever Weakness of the face muscles Other new symptoms - Billing Disposition and Condition Condition: STABLE Disposition: Home
== END 2018-10-26 07:47 | disposition home or self-care (01) ==
LOC: UCEAST 07:04
DX: H92.02 Otalgia, left ear (principal); I10 Essential (primary) hypertension; E11.9 Type 2 diabetes mellitus without complications; Z91.040 Latex allergy status
CPT/HCPCS: 99211; G0463

== ENCOUNTER 2019-06-02 07:38 | Emergency (ER) | payer MEDICARE ==
--- OUTSIDE RECORDS SUMMARY | 2019-06-02 07:44 | XMS REPORT | Summary of Care ---
:1945 Author Organization [facility] Address [address] [place] [address] Care Team Providers Name Role Phone Lori Dawson MD Primary Care Provider Reason for Visit Reason Comments Follow Up Right hip pain. Patient here to discuss her right hip pain with , as she does not know if it is releated to her back issues. Patient states that her right hip pain started right after her last procedure. Encounter Details Date Type Department Care Team Description 04/09/2019 Office Visit [facility] - Fortino Gomez MD Trochanteric bursitis [place] [address] [facility] of right hip (Primary [address] [facility] [address] [place] [address] [place] [address] [phone] Allergies Active Allergy Reactions Severity Noted Date Comments Black [place] Respiratory Reaction 04/17/2017 Tarax[place]um Officinale Respiratory Reaction 11/10/2015 Environmental Respiratory Reaction 01/18/2013 Latex Rash Low 02/26/2013 Metals Rash 09/05/2013 documented as of this encounter (statuses as of 04/09/2019) Medications Medication Sig Dispensed Refills Start Date End Date Status Calcium Take 1 Tab by 0 Active Carbonate-Vitamin D mouth DAILY. (CALTRATE 600+D PO) metFORMIN (GLUCOPHAGE TAKE ONE TABLET 180 Tab 2 04/11/2018 Active XR) 500 MG Oral TABLET BY MOUTH EVERY SR 24 HRIndications: DAY Borderline diabetes mellitus meloxicam (MOBIC) 7.5 TAKE ONE TABLET 60 Tab 5 05/01/2018 Active MG Oral TabIndications: BY MOUTH TWICE A Pain of both hip joints DAY NEEDED FOR HIP PAIN amLodipine (NORVASC) 5 TAKE ONE TABLET 90 Tab 5 11/15/2018 Active MG Oral TabIndications: BY MOUTH EVERY Essential hypertension DAY Probiotic Product Take 1 Cap by 0 Active (PROBIOTIC-10 PO) mouth DAILY. diphenhydrAMINE-APAP, Take by mouth 0 Active sleep, (TYLENOL PM EVERY BEDTIME EXTRA STRENGTH PO) NEEDED. documented as of this encounter (statuses as of 04/09/2019) Active Problems Problem Noted Date Hypertension 01/09/2019 Diarrhea 11/09/2018 Impingement syndrome of left shoulder 05/15/2018 Status post Liberty fundoplication 08/24/2017 Overview: Diarrhea since ( Dr Galvan) Type 2 diabetes mellitus without complication, without long-term current 06/05 use of insulin Borderline diabetes mellitus 04/06/2017 Overview: 04/16 [facility] DJD(carpometacarpal degenerative joint disease), localized primary 2014 Trochanteric bursitis 11/01/2013 Radial styloid tenosynovitis 08/01/2013 Overview: Bilateral, s/p R injection 2012, Dr. Heller Varicosities 08/01/2013 Overview: L>R, itchy, family history of same Gallstone Pancreatitis 08/01/2013 Overview: s/p sphincterotomy BMI 31.0-31.9,adult 08/08/2012 Overview: This patient's BMI has been calculated and is above average, and BMI management plan is completed. Mood disorder Overview: Formerly with Dr. Carter at [facility], recurrent hospitaliizations, including December 2010; in remission since 2010 without need for medication changes Dyslipidemia Overview: LDL 107, HDL 48 Abnormal mammogram Overview: history of benign breast biopsy documented as of this encounter (statuses as of 04/09/2019) Resolved Problems Problem Noted Date Resolved Date CTS (carpal tunnel syndrome) 08/01/2013 documented as of this encounter (statuses as of 04/09/2019) Immunizations Name Administration Dates Next Due Depo Medrol (80mg) 02/27/2015 Influenza (IM) Preservative Free 04/08/2018, 04/25/2013, 07/26/2011 Influenza Vaccine High Dose 04/26/2017, 05/11/2016, 04/12/2015 Influenza Vaccine Whole 05/02/2014, 06/09/2012 PNEUMOCOCCAL POLYSACCHARIDE VACCINE 07/26/2011 Pneumococcal Conjugate(13 Valent) 09/28/2016 Vitamin B12 (1,000 mcg) 02/01/2013 documented as of this encounter Social History Tobacco Use Types Packs/Day Years Used Date Never Smoker Smokeless Tobacco: Never Used Alcohol Use Drinks/Week oz/Week Comments Yes rare Alcohol Habits Answer Date Recorded How often do you have a drink containing alcohol? 2-4 times a month 2018 How many drinks containing alcohol do you have on a Not asked typical day when you are drinking? How often do you have six or more drinks on one Not asked occasion? Social Isolation Answer Date Recorded In a typical week, how many times do you More than three times a week 2018 talk on the phone with family, friends, or neighbors? How often do you get together with friends More than three times a week 12/31 or relatives? How often do you attend jain or Not asked anglican services? Do you belong to any clubs or Not asked organizations such as jain groups, unions, fraternal or athletic groups, or school groups? How often do you attend meetings of the Not asked clubs or organizations you belong to? Are you now , , , 12/31/2018 , never or living with a partner? Physical Activity Answer Date Recorded On average, how many days per week do you engage in moderate to 0 days 2018 strenuous exercise (like walking fast, running, jogging, dancing, swimming, biking, or other activities that cause a light or heavy sweat)? On average, how many minutes do you engage in exercise at this 0 min 2018 level? Stress Answer Date Recorded Do you feel stress - tense, restless, nervous, or anxious, Not at all 2018 or unable to sleep at night because your mind is troubled all the time - these days? Financial Resource Strain Answer Date Recorded How hard is it for you to pay for the very basics like Not hard at all 2018 food, housing, medical care, and heating? Intimate Partner Violence Answer Date Recorded Within the last year, have you been afraid of your partner or No 12/31/2018 ex-partner? Within the last year, have you been humiliated or emotionally No 12/31/2018 abused in other ways by your partner or ex-partner? Within the last year, have you been kicked, hit, slapped, or No 12/31/2018 otherwise physically hurt by your partner or ex-partner? Within the last year, have you been raped or forced to have any No 12/31/2018 kind of sexual activity by your partner or ex-partner? Food Insecurity Answer Date Recorded Within the past 12 months, you worried that your food would Never true 2018 run out before you got money to buy more. Within the past 12 months, the food you bought just didn't Never true 2018 last and you didn't have money to get more. Transportation Needs Answer Date Recorded In the past 12 months, has lack of transportation kept you from No 12/31/2018 medical appointments or from getting medications? In the past 12 months, has lack of transportation kept you from No 12/31/2018 meetings, work, or getting things needed for daily living? Sex Assigned at Date Recorded Not on file Job Start Date Occupation Industry Not on file Not on file Not on file Travel History Travel Start Travel End No recent travel history available. documented as of this encounter Last Filed Vital Signs Vital Sign Reading Time Taken Comments Blood Pressure 149/80 04/09/2019 9:41 AM EDT Pulse 83 04/09/2019 9:41 AM EDT Temperature - - Respiratory Rate - - Oxygen Saturation - - Inhaled Oxygen Concentration - - Weight 92.5 kg (204 lb) 04/09/2019 9:41 AM EDT Height 172.7 cm (5' 8") 04/09/2019 9:41 AM EDT Body Mass Index 31.02 04/09/2019 9:41 AM EDT documented in this encounter Progress Notes Fortino Gomez MD - 04/09/2019 9:40 AM EDT Name: Selin Damon : 1945 Date of Service: 04/09/2019 Chief Complaint Patient presents with Follow Up Right hip pain. Patient here to discuss her right hip pain with , as she does not know if it is releated to her back issues. Patient states that her right hip pain started right after her last procedure. Now with minimal sciatic type pain. Patient complains primarily of right proximal lateral hip pain consistent with trochanteric bursitis. Reviewed old records. Patient had injection for trochantericbursitis sometime ago with good relief. Had also been taking meloxicam for this condition which wasrecently increased by Dr. Dawson but unfortunately did not give significant relief. Patient has no groin pain. Physical exam shows a healthy-appearing woman in no acute distress. Alert and oriented. Hip grossly normal. Range of motion of the hip is full without pain on rotation. Tender right greater trochanteric bursa. Grossly neurovascular status right lower extremity intact. Impression: Right trochanteric bursitis. Procedure: In sterile fashion, I injected the right trochanteric bursa with 80 mg of Depo-Medrol and3 cc of 1% lidocaine. ICD-9-CM ICD-10-CM 1. Trochanteric bursitis of right hip 726.5 M70.61 Author: Fortino Gomez MD 04/09/2019 09:57 This record contains sections created with voice recognition software. It has been electronically signed. A reasonable attempt at proofreading has been made. Please call with any questions or corrections. documented in this encounter Plan of Treatment Health Maintenance Due Date Last Done Comments Diabetic Eye Exam 1945 FOOT EXAM 1963 ZOSTER IMMUNIZATION SERIES 1996 (1 of 2) INFLUENZA VACCINE (#1) 2019 04/08/2018, 04/26/2017, 05/11/2016, Additional history exists HEMOGLOBIN A1C 04/28/2019 10/26/2018, 05/16/2018, 12/14/2017, Additional history exists LIPID DISORDER SCREENING 10/27/2019 10/26/2018, 05/16/2018, 12/21/2017, Additional history exists URINE MICROALBUMIN 10/27/2019 10/26/2018, 12/14/2017, 08/07/2017 MAMMOGRAM (SCREENING) 11/23/2019 11/22/2018, 10/24/2017, 10/07/2016, Additional history exists DEPRESSION SCREENING 01/01/2020 12/31/2018 FALL RISK ASSESSMENT 01/01/2020 12/31/2018, 12/31/2018 MEDICARE ANNUAL WELLNESS 01/01/2020 12/31/2018, 02/13/2018, VISIT 09/28/2016, Additional history exists OSTEOPOROSIS SCREENING 02/09/2028 02/08/2018, 08/03/2011 PNEUMOCOCCAL 65+YRS Completed 09/28/2016, 07/26/2011 HPV IMMUNIZATION SERIES Aged Out No longer eligible based on patient's age to complete this topic MENINGOCOCCAL VACCINE IMM Aged Out No longer eligible based on patient's age to complete this topic documented as of this encounter Goals Goal Patient Goal Associated Recent Patient-Stated? Author Type Problems Progress Blood Pressure Blood Pressure 149/80 No Samir, < 140/90 (04/09/2019 MD Lori 9:41 AM EDT) Note: This is an individualized treatment (blood pressure) goal for Selin Damon: Displayed above (on the left) is your goal for blood pressure control. Your most recent blood pressure is also shown above, on the right. You should try to achieve blood pressures that are lower than your goal listed above (on the left). Glycohemoglobin A1c < 7.0 Diabetes 6.2 (10/26/2018 6:40 AM No Lori Dawson MD EDT) Note: This is an individualized treatment (diabetes control, HgbA1C) goal for Selin Damon: Displayed above is your progress towards your HgbA1C goal. Your goal is shown above (on the left); your most recent HgbA1C is shown on the right. Note that lower numbers are better. Weight loss vs. 18 mo Lifestyle 12 (04/09/2019 9:41 AM EDT) No Lori Dawson MD max (lbs) >= 10 Note: This is an individualized lifestyle goal for Selin Damon: Your body mass index (BMI) is more than 30. You should lose weight. A reasonable starting goal is to lose 10 pounds. Displayed above is how many pounds you have lost thus far towards your 10 pound weight loss goal. Keep immunizations current Lifestyle No Lori Dawson MD Note: This is an individualized lifestyle goal for Selin Damon: Please be sure to keep up-to-date on recommended immunizations. For example, this would include a yearly influenza vaccine. Immunization status can be seen by looking at the Health Maintenance sections of your [facility], Plan of Care, and any After Visit Summaries. Take all prescribed medications as directed Self-management Lori Cabrera MD Note: This is an individualized self-management goal for Selin Damon: Please take all prescribed medications as directed. 1. Do not skip doses. If you cannot afford your medications, talk with your doctor. 2. Use a pill reminder system such as a pill box if needed. Your pharmacist can help you with this. 3. Contact your Pharmacy 5 days before your medication runs out. If you cannot take your medications for any reasons, talk with your doctor. 4. Please bring all of your medication bottles and inhalers (or a list of all your medications/inhalers) with you to every visit. Potential barriers to meeting all of your care plan goals will continue to be addressed on an ongoing basis. documented as of this encounter Results Not on filedocumented in this encounter Visit Diagnoses Diagnosis Trochanteric bursitis of right hip - Primary Enthesopathy of hip region documented in this encounter Insurance Payer Benefit Plan / Subscriber ID Effective Dates Phone Address Type Group MEDICARE MEDICARE PART A xxxxxxxxxxx 2011-Present Medicare & B [facility] COMM[facility]CIAL [facility] CARE xxxxxxxxxxx 2017-Present [facility] OPTIONS Guarantor Name Account Type Relation to Date of Phone Billing Patient Address Selin Damon Personal/Family 1945 [id number] (Home) [place], [place] [phone] (Work) documented as of this encounter Advance Directives Type Date Recorded Patient Director Of Research Center Explanation Advance Directives 04/04/2013 3:37 PM Health Care Proxy
[2019-06-02 07:59] VITALS: BP 168/86
--- NOTE | 2019-06-02 09:22 | UC ---
Skin Complaint HPI - HPI Summary HPI Summary: Patient is a 73-year-old female presenting with lump under right breast that she noticed this morning. Patient states she has a history of benign breast lumps and is "very concerned." Denies history of breast cancer. Notes the lump is tender to touch with some redness. Denies itching or drainage. Denies fever, chills, nausea, vomiting. Patient also notes she has had some itching in her ears for the past several months. She is concerned for possible ear infection because she has chronic bronchitis and postnasal drip. - History of Current Complaint Chief Complaint: UCGeneralIllness Stated Complaint: BREAST COMPLAINT, RESP Hx Obtained From: Patient Onset/Duration: Sudden Onset Pain Intensity: 0 - Allergy/Home Medications Allergies/Adverse Reactions: Allergies Allergy/AdvReac Type Severity Reaction Status Date / Time latex Allergy Rash Verified 06/02/19 07:47 nickel Allergy Rash Verified 06/02/19 07:47 Home Medications: Home Medications L.acidoph,Paracasei, B.lactis [Probiotic] 1 each PO DAILY 06/02/19 [History Confirmed 06/02/19] PMH/Surg Hx/FS Hx/Imm Hx Respiratory History: Bronchitis - Surgical History Surgical History: Yes Surgery Procedure, Year, and Place: partial hysterectomy w/ rectal and bladder prolapse repair; D&C's; 25 yrs ago, cholecystectomy, hernia repair, cataract, [facility] fundiplication, surgery d/t acute pancreatitis - Family History Known Family History: Positive: Cardiac Disease, Non-Contributory - Social History Occupation: Retired Alcohol Use: Occasionally Alcohol Amount: 2 drinks a week Substance Use Type: None Smoking Status (MU): Never Smoked Tobacco Have You Smoked in the Last Year: No - Immunization History Most Recent Influenza Vaccination: fall 2012 Review of Systems All Other Systems Reviewed And Are Negative: Yes Constitutional: Positive: Negative. Negative: Fever, Chills Skin: Positive: Other - erythematous lump beneath breast ENT: Positive: Other - Ear itching Respiratory: Positive: Negative Cardiovascular: Positive: Negative Gastrointestinal: Positive: Negative. Negative: Vomiting, Nausea Musculoskeletal: Positive: Negative Neurological: Positive: Negative Psychological: Positive: Anxious Physical Exam Triage Information Reviewed: Yes Appearance: Well-Appearing, No Pain Distress, Well-Nourished Vital Signs: Initial Vital Signs Temp 99.3 F 06/02/19 07:51 Pulse 102 06/02/19 07:51 Resp 18 06/02/19 07:51 BP 168/86 06/02/19 07:51 Pulse Ox 98 06/02/19 07:51 Vital Signs Reviewed: Yes Eyes: Positive: Conjunctiva Clear ENT: Positive: Hearing grossly normal, Pharynx normal - PND noted, TMs normal, Uvula midline. Negative: TM bulging, TM dull, TM red Neck: Positive: Supple Respiratory Exam: Normal Respiratory: Positive: Lungs clear, Normal breath sounds, No respiratory distress Cardiovascular Exam: Normal Cardiovascular: Positive: RRR Neurological: Positive: Alert Psychological: Positive: Age Appropriate Behavior Skin: Positive: Other - 1.5cm cyst beneath R breast. inflammation and tenderness to palpation noted. no drainage Course/Dx - Course Course Of Treatment: Instructed patient to take antibiotic as prescribed or inflamed cysts and to apply warm compresses daily. Directed her to dermatology for follow-up if needed. Also prescribed steroid drops for ears to help reduce itching of years. Instructed to follow up with PCP if symptoms persist. Patient voiced understanding and agreed with treatment plan. - Diagnoses Provider Diagnosis: Inflamed sebaceous cyst, Ear itching Discharge ED - Sign-Out/Discharge Documenting (check all that apply): Patient Departure All imaging exams completed and their final reports reviewed: No Studies - Discharge Plan Condition: Stable Disposition: HOME Prescriptions: Cephalexin CAP* [Keflex CAP*] 500 mg PO TID #15 cap Fluocinolone Acetonide Oil [Dermotic] 0.01 % OT DAILY PRN #1 bottle PRN Reason: Itching Patient Education Materials: Cyst (ED) Referrals: Lori Dawson MD [Primary Care Provider] - If Needed Karsten Del Rosario MD [Medical Doctor] - If Needed Additional Instructions: As discussed, take Keflex as prescribed for your inflamed cyst. Use the ear drops as prescribed for itching in your ears. Apply warm compresses to the area 2-3 times daily to help relieve symptoms. Follow up with your PCP or the carpet sewing machine operator referral listed below for further evaluation and treatment. Go to the emergency room if you experience worsening symptoms, including increasing redness and warmth, fever, nausea, or vomiting. - Billing Disposition and Condition Condition: STABLE Disposition: Home - Attestation Statements Provider Attestation: Per institutional requirements, I have reviewed the chart, however, I was not consulted specifically or made aware of this patient by the midlevel provider. I did not personally evaluate, interact with , or disposition this patient.
== END 2019-06-02 09:35 | disposition home or self-care (01) ==
LOC: UCEAST 07:38
DX: N60.81 Other benign mammary dysplasias of right breast (principal); H93.93 Unspecified disorder of ear, bilateral; J42 Unspecified chronic bronchitis; R09.82 Postnasal drip; Z91.040 Latex allergy status; Z91.09 Other allergy status, other than to drugs and biological substances
CPT/HCPCS: 99212; G0463

== ENCOUNTER 2019-10-12 08:57 | Emergency (ER) | payer MEDICARE ==
--- NOTE | 2019-10-12 09:13 | ED ---
Back Pain - HPI Summary HPI Summary: This patient is a 74 year old female presenting to [facility] with a chief complaint of left lower back pain since 4 days ago. She states she had a low grade fever up to 100.4 F since onset. She states her granddaughter was diagnosed with pneumonia 6 days ago. She states she has a Hx of chronic bronchitis and has a cough that she states is about the same as it normally is. She states a Hx of acute pancreatitis. She reports urinary urgency and diarrhea but is not an acute problem. She reports headache and left ear pain, and states a Hx of ear infections. She denies nausea and vomiting. She denies any travel or contact with anyone that has been tested positive for COVID-19. Medications reviewed, allergies noted. Calcium Carbonate/Vitamin D3 [Caltrate 600 + D Soft Chew Tab] 1 chw PO DAILY 02/14 [History Confirmed 06/02/19] Meloxicam(NF) [Mobic(NF)] 7.5 mg PO DAILY 01/04/18 [History Confirmed 06/02/19] Metformin ER (NF) 500 mg PO DAILY 01/04/18 [History Confirmed 06/02/19] amLODIPine TAB* [Norvasc 5 mg TAB*] 5 mg PO DAILY 01/04/18 [History Confirmed ] Acetaminophen TAB* [Tylenol TAB*] 650 mg PO Q6H PRN tab 11/05/18 [Rx Confirmed 06/02/19] Cephalexin CAP* [Keflex CAP*] 500 mg PO TID #15 cap 06/02/19 [Rx] Fluocinolone Acetonide Oil [Dermotic] 0.01 % OT DAILY PRN #1 bottle 06/02/19 [Rx ] L.acidoph,Paracasei, B.lactis [Probiotic] 1 each PO DAILY 06/02/19 [History Confirmed 06/02/19] - History of Current Complaint Chief Complaint: EDBackInjuryPain Stated Complaint: ABD PAIN/FEVER PER PT Time Seen by Provider: 10/12/19 08:59 Hx Obtained From: Patient Onset/Duration: Lasting Days Onset/Duration: Started Days Ago Pain Intensity: 3 Pain Scale Used: 0-10 Numeric - Allergies/Home Medications Allergies/Adverse Reactions: Allergies Allergy/AdvReac Type Severity Reaction Status Date / Time latex Allergy Rash Verified 10/12/19 09:04 nickel Allergy Rash Verified 10/12/19 09:04 Home Medications: Home Medications Calcium Carbonate/Vitamin D3 [Caltrate 600 + D Soft Chew Tab] 1 chw PO DAILY 02/14 [History Confirmed 10/12/19] Meloxicam(NF) [Mobic(NF)] 7.5 mg PO DAILY 01/04/18 [History Confirmed 10/12/19] Metformin ER (NF) 500 mg PO DAILY 01/04/18 [History Confirmed 10/12/19] amLODIPine TAB* [Norvasc 5 mg TAB*] 5 mg PO DAILY 01/04/18 [History Confirmed ] Acetaminophen TAB* [Tylenol TAB*] 650 mg PO Q6H PRN tab 11/05/18 [Rx Confirmed 10/12/19] Cephalexin CAP* [Keflex CAP*] 500 mg PO BID 14 Days #28 cap 10/12/19 [Rx] Dextromethorphn/Acetaminoph/Cp [Vicks Nyquil Cold & Flu Liquid] 30 ml PO BEDTIME PRN 10/12/19 [History Confirmed 10/12/19] Irbesartan/Hydrochlorothiazide [Irbesartan-Hctz 150-12.5 mg Tb] 1 tab PO DAILY 10/12/19 [History Confirmed 10/12/19] PMH/Surg Hx/FS Hx/Imm Hx Endocrine/Hematology History: Reports: Hx Diabetes - type 2 - borderline Denies: Hx Systemic Lupus Erythematosus, Hx Thyroid Disease Cardiovascular History: Reports: Hx Angina - Recent and new, Hx Hypertension, Other Cardiovascular Problems/Disorders - Hx of palpitations Denies: Hx Congestive Heart Failure Respiratory History: Reports: Hx Chronic Bronchitis, Other Respiratory Problems/ Disorders - Hx of pneumonia. Denies: Hx Asthma, Hx Chronic Obstructive Pulmonary Disease (COPD) GI History: Reports: Hx Diverticulosis - diverticulitis, Hx Gall Bladder Disease - s/p choley, Hx Gastroesophageal Reflux Disease, Hx Hiatal Hernia - HAD REPAIR FOR Denies: Hx Ulcer Comment Only: Other GI Disorders - hiatal hernia History: Reports: Other Problems/Disorders - hx of uti Denies: Hx Dialysis, Hx Renal Disease Musculoskeletal History: Reports: Hx Arthritis - HANDS, HANDS, HIPS AND KNEES, Other Musculoskeletal History - sciatica Denies: Hx Rheumatoid Arthritis Sensory History: Reports: Hx Cataracts, Hx Contacts or Glasses Denies: Hx Hearing Aid Opthamlomology History: Reports: Hx Cataracts, Hx Contacts or Glasses Neurological History: Reports: Other Neuro Impairments/Disorders - Sciatica nerve pain Psychiatric History: Reports: Hx Anxiety - PRN MEDICATION, Hx Depression - ON MEDICATION FOR - Cancer History Cancer Type, Location and Year: questionable mammograms and lobectomies Hx Chemotherapy: No - Surgical History Surgery Procedure, Year, and Place: partial hysterectomy w/ rectal and bladder prolapse repair; D&C's; 25 yrs ago, cholecystectomy, hernia repair, cataract, [facility] fundiplication, surgery d/t acute pancreatitis Hx Anesthesia Reactions: Yes - NAUSEA,BUT SURGERY IN 2012- HAD NO PROBLEM Infectious Disease History: No Infectious Disease History: Reports: Hx Shingles Denies: Hx Hepatitis, Hx Human Immunodeficiency Virus (HIV), Hx of Known/ Suspected MRSA, History Other Infectious Disease, Traveled Outside the [place] in Last 30 Days - Family History Known Family History: Positive: Cardiac Disease - Social History Alcohol Use: Occasionally Alcohol Amount: 2 drinks a week Hx Substance Use: No Substance Use Type: Reports: None Hx Tobacco Use: No Smoking Status (MU): Never Smoked Tobacco Have You Smoked in the Last Year: No Review of Systems Positive: Fever Positive: Ear Ache Positive: Cough Positive: Diarrhea. Negative: Vomiting, Nausea Positive: urgency Positive: Other - Left lower back pain Positive: Headache All Other Systems Reviewed And Are Negative: Yes Physical Exam - Summary Physical Exam Summary: Constitutional: Well-developed, Well-nourished, Alert. (-) Distressed Skin: Warm, Dry HENT: Normocephalic; Atraumatic Eyes: Conjunctiva normal Neck: Musculoskeletal ROM normal neck. (-) JVD, (-) Stridor, (-) Tracheal deviation Cardio: Rhythm regular, rate normal, Heart sounds normal; Intact distal pulses; The pedal pulses are 2+ and symmetric. Radial pulses are 2+ and symmetric. (-) Murmur Pulmonary/Chest wall: Effort normal. (-) Respiratory distress, (-) Wheezes, (-) Rales Abd: Soft, (-) tenderness, (-) Distension, (-) Guarding, (-) Rebound Musculoskeletal: (-) Edema Lymph: (-) Cervical adenopathy Neuro: Alert, Oriented x3 Psych: Mood and affect Normal Triage Information Reviewed: Yes Vital Signs On Initial Exam: Initial Vitals Temp Pulse Resp BP Pulse Ox 99.5 F 108 16 166/90 100 10/12/19 09:00 10/12/19 09:00 10/12/19 09:00 10/12/19 09:00 10/12/19 09:00 Vital Signs Reviewed: Yes Procedures - Sedation Patient Received Moderate/Deep Sedation with Procedure: No Diagnostics - Vital Signs Vital Signs Temp Pulse Resp BP Pulse Ox 10/12/19 09:00 99.5 F 108 16 166/90 100 - Laboratory Result Diagrams: 10/12/19 09:36 10/12/19 09:36 Lab Statement: Any lab studies that have been ordered have been reviewed, and results considered in the medical decision making process. - Radiology CXR Radiology Interpretation Completed By: Radiologist Summary of Radiographic Findings: No radiographic evidence for acute cardiopulmonary abnormality on this portable chest x-ray. ED Provider has reviewed this report. Back Pain Course/Dx - Course Course Of Treatment: Patient is here with low-grade fever and left flank pain. Patient has cough at baseline with no change in her cough. Patient has no risk factors for covid 19 per the CDC recommendations. Patient had chest x-ray which showed no acute abnormality. Patient had blood work performed which is grossly unremarkable. Patient has a UA which has positive leukoesterase. The setting of flank pain, urinary frequency, urinary urgency, and a borderline UA, patient will be treated for pyelonephritis. Patient was given Rocephin here and discharged on Keflex - Diagnoses Provider Diagnoses: Pyelonephritis Discharge ED - Sign-Out/Discharge Documenting (check all that apply): Patient Departure - Discharge - Discharge Plan Condition: Stable Disposition: HOME Prescriptions: Cephalexin CAP* [Keflex CAP*] 500 mg PO BID 14 Days #28 cap Patient Education Materials: Kidney Infection (ED) Referrals: Lori Dawson MD [Primary Care Provider] - 3 Days Additional Instructions: Take antibiotics as prescribed. Return with severe pain, high fever, severe vomiting, or any other concerning symptoms. - Billing Disposition and Condition Condition: STABLE Disposition: Home - Attestation Statements Document Initiated by Scribe: Yes Documenting Scribe: Hari Patel Provider For Whom Scribe is Documenting (Include Credential): Kuldip Ann MD Scribe Attestation: Hari Johnson, scribed for Kuldip Ann MD on 10/12/19 at 1314. Scribe Documentation Reviewed: Yes Provider Attestation: The documentation as recorded by the scribe, Hari Patel accurately reflects the service I personally performed and the decisions made by me, Kuldip Ann MD Status of Scribe Document: Viewed
[2019-10-12] MEDS ORDERED: NS 0.9% 1000 ML** 1,000 ML IV ONE (09:19)
[2019-10-12] MEDS ORDERED: Ibuprofen TAB* 600 MG PO ONE (09:19)
[2019-10-12 09:42] LABS: ABS Eosinophils 0.1 10^3/ul (0-0.6); ABS Lymphocytes 1.6 10^3/ul (1.0-4.8); ABS Monocytes 0.4 10^3/ul (0-0.8); ABS Neutrophils 5.7 10^3/ul (1.5-7.7); Hematocrit 44 % (35-47); Hemoglobin 14.6 g/dL (12.0-16.0); Mean Corpuscular HGB Conc 33 g/dL (31-36); Mean Corpuscular Hemoglobin 27 pg (27-31); Mean Corpuscular Volume 81 fL (80-97); Platelet Count 279 10^3/uL (150-450); Red Cell Distribution Width 15 % (10-15); White Blood Count 7.8 10^3/uL (3.5-10.8)
[2019-10-12 10:05] LABS: Urine Appearance Cloudy; Urine Bilirubin Negative (Negative); Urine Blood Negative (Negative); Urine Color Yellow; Urine Glucose Negative (Negative); Urine Ketones Negative (Negative); Urine Nitrite Negative (Negative); Urine Protein Negative (Negative); Urine Specific Gravity 1.014 (1.010-1.030); Urine Urobilinogen Negative (Negative)
--- OUTSIDE RECORDS SUMMARY | 2019-10-12 10:05 | XMS REPORT | Summary of Care ---
:1945 Author Organization [facility] Address [address] [place] [address] Care Team Providers Name Role Phone Lori Dawson Primary Care Provider Reason for Visit Reason Comments Follow Up Left ankle rash - not resolved - itches Medication Check HTN med change follow up Imm/Inj Tdap administered today Diabetes Hypertension Encounter Details Date Type Department Care Team Description 08/30/2019 Office Visit [place] [facility] Lori Dawson MD Essential hypertension (Primary Dx); Medicine [address] Need for vaccination; [address] [place] [address] Pedal edema; [place] [address] Hypothyroidism, unspecified type; [phone] Lipid disorder; Eczema, unspecified type Allergies Active Allergy Reactions Severity Noted Date Comments [place] Respiratory Reaction 04/17/2017 [place] Respiratory Reaction 11/10/2015 Environmental Respiratory Reaction 01/18/2013 Latex Rash Low 02/26/2013 Metals Rash 09/05/2013 documented as of this encounter (statuses as of 08/30/2019) Medications Medication Sig Dispensed Refills Start Date End Date Status Calcium Take 1 Tab by 0 Active Carbonate-Vitamin D mouth TWICE DAILY. (CALTRATE 600+D PO) Probiotic Product Take 1 Cap by 0 Active (PROBIOTIC-10 PO) mouth DAILY. diphenhydrAMINE-APAP, Take by mouth 0 Active sleep, (TYLENOL PM EVERY BEDTIME EXTRA STRENGTH PO) NEEDED. meloxicam (MOBIC) 7.5 Take 1 Tab by 60 Tab 5 05/14/2019 Active MG Oral mouth TWO TIMES TabIndications: Pain DAILY NEEDED of both hip joints (hip pain). Additional information Patient taking differently: 15 mg Oral QAM, Reported on 07/19/2019 3:06 PM metFORMIN (GLUCOPHAGE XR) 500 TAKE ONE TABLET BY MOUTH 90 Tab 3 07/01/2019 Active MG Oral TABLET SR 24 EVERY DAY HRIndications: Borderline diabetes mellitus clotrimazole (LOTRIMIN) 1 % Apply to affected area 1 Tube 0 08/05/2019 Active Apply externally twice daily for 4 weeks. CreamIndications: Tinea corporis Irbesartan-hydroCHLOROthiazide Take 1 Tab by mouth 30 Tab 0 08/19/2019 Active 150-12.5 MG Oral Tab DAILY. triamcinolone (KENALOG) 0.1 % 1 Appl by Dental route 1 Tube 0 08/30/2019 Active Mouth/Throat PasteIndications: TWO TIMES DAILY NEEDED Eczema, unspecified type (mouth sores). Apply scant twice daily - documented as of this encounter (statuses as of 08/30/2019) Active Problems Problem Noted Date Hypertension 01/09/2019 [...] disorder Overview: Formerly with Dr. Carter at [facility], recurrent hospitaliizations, including December 2010; in remission since 2010 without need for medication changes Dyslipidemia Overview: LDL 107, HDL 48 Abnormal mammogram Overview: history of benign breast biopsy documented as of this encounter (statuses as of 08/30/2019) Resolved Problems Problem Noted Date Resolved Date CTS (carpal tunnel syndrome) 08/01/2013 documented as of this encounter (statuses as of 08/30/2019) Immunizations Name Administration Dates Next Due Influenza (IM) Preservative Free 04/08/2018, 04/25/2013, 07/26/2011 Influenza Vaccine 65 Yrs + 04/11/2019 Influenza Vaccine High Dose 04/08/2018, 04/26/2017, 05/11/2016, 04/12/2015 Influenza Vaccine Whole 05/02/2014, 06/09/2012 Influenza Virus Vaccine Pres Free 6-35 04/30/2014 Months PNEUMOCOCCAL POLYSACCHARIDE VACCINE 07/31/2012, 07/26/2011 Pneumococcal Conjugate(13 Valent) 09/28/2016 Seasonal Trivalent Influenza Vaccine, 04/11/2019 Adjuvanted, Preserve TDAP Vaccine 08/30/2019 documented as of this encounter Social History [...] or relatives? How often do you attend presybeterian or Not asked mosque services? Do you belong to any clubs or Not asked organizations such as pres[employer]ian groups, unions, fraternal or athletic groups, or [...] Sign Reading Time Taken Comments Blood Pressure 140/82 08/30/2019 10:09 AM EST Pulse 78 08/30/2019 10:09 AM EST Temperature - - Respiratory Rate - - Oxygen Saturation 99% 08/30/2019 10:09 AM EST Inhaled Oxygen Concentration - - Weight 96.7 kg (213 lb 1.6 oz) 08/30/2019 10:09 AM EST Height 172.7 cm (5' 8") 08/30/2019 10:09 AM EST Body Mass Index 32.4 08/30/2019 10:09 AM EST documented in this encounter Patient Instructions Patient InstructionsLori Dawson MD - 08/30/2019 10:00 AM ESTNon medicinal approaches- Counseling - Meditation - Exercise - Music - activities - Medication - SSRI / SNRI Others documented in this encounter Progress Notes Lori Dawson MD - 08/30/2019 10:00 AM EST NAME:Selin Damon 1945: 1945 ENC Date: 08/30/2019 CC: Chief Complaint Patient presents with Follow Up Left ankle rash - not resolved - itches Medication Check HTN med change follow up Imm/Inj Tdap administered today Diabetes Hypertension Selin Damon is a 74-y.o. female Diabetic / HTN _ \\ Saw [facility] - Pedal edema on amlodipine- switched to olmesartan - but insurance does not cover the latter so switched to irbesartan / hydrochlorothiazide Had lesion on ankle thought to be tinea corporis - treatment with chlotrimazole 3. Feeling depressed- Weather - ? Has been tried on multiple medication - Current Outpatient Medications Medication Sig Calcium Carbonate-Vitamin D (CALTRATE 600+D PO) Take 1 Tab by mouth TWICE DAILY. clotrimazole (LOTRIMIN) 1 % Apply externally Cream Apply to affected area twice daily for 4 weeks. diphenhydrAMINE-APAP, sleep, (TYLENOL PM EXTRA STRENGTH PO) Take by mouth EVERY BEDTIME NEEDED. Irbesartan-hydroCHLOROthiazide 150-12.5 MG Oral Tab Take 1 Tab by mouth DAILY. meloxicam (MOBIC) 7.5 MG Oral Tab Take 1 Tab by mouth TWO TIMES DAILY NEEDED (hip pain). (Patient taking differently: Take 15 mg by mouth EVERY MORNING.) metFORMIN (GLUCOPHAGE XR) 500 MG Oral TABLET SR 24 HR TAKE ONE TABLET BY MOUTH EVERY DAY Probiotic Product (PROBIOTIC-10 PO) Take 1 Cap by mouth DAILY. triamcinolone (KENALOG) 0.1 % Mouth/Throat Paste 1 Appl by Dental route TWO TIMES DAILY NEEDED (mouth sores). Apply scant twice daily - No current facility-administered medications for this visit. Patient Active Problem List Diagnosis Date Noted Hypertension 01/09/2019 Diarrhea 11/09/2018 Impingement syndrome of left shoulder 05/15/2018 Status post [facility] fundoplication 08/24/2017 Diarrhea since ( Dr Galvan) Type 2 diabetes mellitus without complication, without long-term current use of insulin ([facility])06/05/2017 Borderline diabetes mellitus 04/06/201704/16 [facility] DJD(carpometacarpal degenerative joint disease), localized primary Trochanteric bursitis 11/01/2013 Radial styloid tenosynovitis 08/01/2013 Bilateral, s/p R injection 2012, Dr. Heller Varicosities 08/01/2013 L>R, itchy, family history of same Gallstone Pancreatitis 08/01/2013 s/p sphincterotomy BMI 31.0-31.9,adult 08/08/2012 This patient's BMI has been calculated and is above average, and BMI management plan is completed. Mood disorder Formerly with Dr. Carter at [facility], recurrent hospitaliizations, including December 2010; in remission since 2010 without need for medication changes Dyslipidemia LDL 107, HDL 48 Abnormal mammogram history of benign breast biopsy Family History Problem Relation Age of Onset Emphysema Father Asthma Father Respiratory Father Depression/Depressed Mother Arthritis Mother Psychiatry Mother Manic depressive/bipolar Depression/Depressed Brother Alcohol/Drug Brother Psychiatry Brother Manic depressive/bipolar No Known Problems Daughter No Known Problems Son No Known Problems Brother Anesth Problems No family history Cancer No family history Clotting Disorder No family history Diabetes No family history Heart Disease No family history Hypertension No family history Kidney Disease No family history Thyroid Disease No family history No cardiopulmonary symptoms No upper or lower GI complaints No urinary tract symptoms. No bruising/ bleeding. No neurological complaints . No insomnia.+ . Social History Tobacco Use Smoking status: Never Smoker Smokeless tobacco: Never Used Substance Use Topics Alcohol use: Yes Frequency: 2-4 times a month Comment: rare Drug use: No OBJECTIVE: BP 140/82 | Pulse 78 | Ht 5' 8" (1.727 m) | Wt 213 lb 1.6 oz (96.7 kg) | SpO2 99% | BMI 32.40 kg/m . Heent neg Neck no JVD, thyromegaly or bruit Lungs Clear CV rrr Abd soft, nontender, no organomegaly Ext no edema; no lesions; pulses intact Neuro: intellect intact ; motor including gait unremarkable A/P ICD-9-CM ICD-10-CM 1. Essential hypertension 401.9 I10 2. Need for vaccination V05.9 Z23 [place] TET, DIP & ACEL PERTUSSIS(DX Z23) 3. Pedal edema 782.3 R60.0 4. Hypothyroidism, unspecified type 244.9 E03.9 5. Lipid disorder 272.9 E78.9 6. Eczema, unspecified type 692.9 L30.9 triamcinolone (KENALOG) 0.1 % Mouth/ Throat Paste Patient Instructions Non medicinal approaches- Counseling - Meditation - Exercise - Music - activities - Medication - SSRI / SNRI Others AUTHOR: Lori Dawson MD 10:42 08/30/2019 documented in this encounter Plan of Treatment Health Maintenance Due Date Last Done Comments Diabetic Eye Exam 1945 DTaP/Tdap/Td Vaccines (1 - 1957 Tdap) FOOT EXAM 1963 MAMMOGRAM (SCREENING) 11/23/2019 11/22/2018, 10/24/2017, 10/07/2016, Additional history exists DEPRESSION SCREENING 01/01/2020 12/31/2018 FALL RISK ASSESSMENT 01/01/2020 12/31/2018, 12/31/2018 MEDICARE ANNUAL WELLNESS 01/01/2020 12/31/2018, 02/13/2018, VISIT 09/28/2016, Additional history exists HEMOGLOBIN A1C 01/04/2020 07/05/2019, 10/26/2018, 05/16/2018, Additional history exists ZOSTER IMMUNIZATION SERIES 06/24/2020 Postponed from (1 of 2) 1996 (Vaccine not available) LIPID DISORDER SCREENING 07/05/2020 07/05/2019, 10/26/2018, 05/16/2018, Additional history exists OSTEOPOROSIS SCREENING 02/09/2028 02/08/2018, 08/03/2011 PNEUMOCOCCAL 65+YRS Completed 09/28/2016, 07/31/2012, 07/26/2011 INFLUENZA VACCINE Completed 04/11/2019, 04/08/2018, 04/08/2018, Additional history exists HEPATITIS A IMMUNIZATION Aged Out No longer eligible SERIES based on patient's age to complete this topic HPV IMMUNIZATION SERIES Aged Out No longer eligible based on patient's age to complete this topic MENINGOCOCCAL VACCINE IMM Aged Out No longer eligible based on patient's age to complete this topic documented as of this encounter Goals Goal Patient Goal Associated Recent Patient-Stated? Author Type Problems Progress Blood Pressure Blood Pressure 140/82 No Samir, < 140/90 (08/30/2019 MD Lori 10:09 AM EST) Note: This is an individualized treatment (blood pressure) goal for Selin Damon: Displayed above (on the left) is your goal for blood pressure control. Your most recent blood pressure is also shown above, on the right. You should try to achieve blood pressures that are lower than your goal listed above (on the left). Glycohemoglobin A1c < 7.0 Diabetes 6.2 (07/05/2019 9:46 AM No Lori Dawson MD EST) Note: This is an individualized treatment (diabetes control, HgbA1C) goal for Selin Damon: Displayed above is your progress towards your HgbA1C goal. Your goal is shown above (on the left); your most recent HgbA1C is shown on the right. Note that lower numbers are better. Weight loss vs. 18 mo max Lifestyle 0 (08/30/2019 10:09 AM EST) Lori Cabrera MD (lbs) >= 10 Note: This is an individualized lifestyle goal for Selin Damon: Your body mass index (BMI) is more than 30. You should lose weight. A reasonable starting goal is to lose 10 pounds. Displayed above is how many pounds you have lost thus far towards your 10 pound weight loss goal. Keep immunizations current Lifestyle Lori Cabrera MD Note: This is an individualized lifestyle goal for Selin Damon: Please be sure to keep up-to-date on recommended immunizations. For example, this would include a yearly influenza vaccine. Immunization status can be seen by looking at the Health Maintenance sections of your [facility], Plan of Care, and any After Visit Summaries. Take all prescribed medications as directed Self-management No Lori Dawson MD Note: This is an individualized self-management [...] filedocumented in this encounter Visit Diagnoses Diagnosis Need for vaccination Need for prophylactic vaccination and inoculation against unspecified single disease Essential hypertension Unspecified essential hypertension Pedal edema Edema Hypothyroidism, unspecified type Lipid disorder Unspecified disorder of lipoid metabolism Eczema, unspecified type documented in this encounter Insurance Payer Benefit Plan / Subscriber ID Effective Dates Phone Address Type Group MEDICARE MEDICARE PART A xxxxxxxxxxx 2011-Present Medicare & B [facility] xxxxxxxxxxx 2017-Present [facility] OPT[employer] Guarantor Name Account Type Relation to Date of Phone Billing Patient Address Selin Damon Personal/Family 1945 [id number] (Home) [place], [place] [phone] [id number] (Work) documented as of this encounter Advance Directives Type Date Recorded 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
[2019-10-12 10:08] LABS: Urine Bacteria Absent (Absent); Urine Red Blood Cell Absent (Absent); Urine Squamous Epithelial Cell Present (Absent); Urine Transitional Epithelial Present (Absent); Urine White Blood Cell Trace(0-5/hpf) (Absent)
[2019-10-12 10:20] LABS: Albumin 4.4 g/dL (3.2-5.2); Albumin/Globulin Ratio 1.5 (1-3); BUN/Creatinine Ratio 25.3 (8-20); Calcium 9.9 mg/dL (8.6-10.3); EGFR African American 81.5 (>60); EGFR Non-African American 67.4 (>60); Potassium 3.8 mmol/L (3.5-5.0); Total Bilirubin 0.4 mg/dL (0.2-1.0); Total Protein 7.4 g/dL (6.4-8.9)
[2019-10-12] MEDS ORDERED: cefTRIAXone(*) 1 GM in NS 0.9% 50 ML* 50 ML IVPB ONE (10:51)
[2019-10-12 11:38] VITALS: BP 165/109
== END 2019-10-12 11:31 | disposition home or self-care (01) ==
LOC: ED 08:57
DX: N12 Tubulo-interstitial nephritis, not specified as acute or chronic (principal); M54.5 Low back pain; E11.8 Type 2 diabetes mellitus with unspecified complications; I10 Essential (primary) hypertension; K21.9 Gastro-esophageal reflux disease without esophagitis; F41.9 Anxiety disorder, unspecified; H92.09 Otalgia, unspecified ear; R05 Cough; K85.90 Acute pancreatitis without necrosis or infection, unspecified; F32.9 Major depressive disorder, single episode, unspecified; R19.7 Diarrhea, unspecified; R51 Headache; Z79.84 Long term (current) use of oral hypoglycemic drugs; Z79.899 Other long term (current) drug therapy; Z86.79 Personal history of other diseases of the circulatory system
CPT/HCPCS: 36415; 71045; 80053; 81003; 81015; 83605; 83880; 85025; 87086; 99283; A9270-GY; J0696